=== PATIENT | female | born 1965 | race African-American/Black ===

== ENCOUNTER → 2016-08-21 | Outpatient (CLI) | payer OTHER | LOC: RAD 14:03 | DX: Z12.31 Encounter for screening mammogram for malignant neoplasm of breast (principal) ==

== ENCOUNTER → 2016-11-18 | Outpatient (CLI) | payer OTHER | LOC: RAD 11:44 | DX: M19.011 Primary osteoarthritis, right shoulder (principal) ==

== ENCOUNTER → 2017-07-13 | Outpatient (CLI) | payer OTHER ==
[~2017-07-13] VITALS: Ht 170.2 cm; Wt 85.3 kg
[~2017-07-13] MED LIST: CENTRUM SILVER1 EAC4 PO; FLUTICASONE PRO16 GM NASAL; LIPITOR10 MG PO; LISINOPRIL30 MG PO; NORVASC5 MG PO; SULINDAC 150 M150 MG PO
== END | disposition home or self-care (01) ==
LOC: GI 06:53
DX: Z12.11 Encounter for screening for malignant neoplasm of colon (principal); K57.30 Diverticulosis of large intestine without perforation or abscess without bleeding; K64.8 Other hemorrhoids; I10 Essential (primary) hypertension; E78.00 Pure hypercholesterolemia, unspecified; Z98.890 Other specified postprocedural states; Z87.891 Personal history of nicotine dependence; Z88.2 Allergy status to sulfonamides; Z79.899 Other long term (current) drug therapy
CPT/HCPCS: 62110; 62900

== ENCOUNTER → 2017-08-27 | Outpatient (CLI) | payer OTHER | LOC: BC 04:19 | DX: Z12.31 Encounter for screening mammogram for malignant neoplasm of breast (principal) ==

== ENCOUNTER → 2018-08-13 | Outpatient (CLI) | payer OTHER | LOC: RAD 12:10 | DX: M16.11 Unilateral primary osteoarthritis, right hip (principal) ==

== ENCOUNTER → 2018-09-02 | Outpatient (CLI) | payer OTHER | LOC: RAD 09:48 | DX: Z12.31 Encounter for screening mammogram for malignant neoplasm of breast (principal) ==

== ENCOUNTER → 2018-10-28 | Outpatient (CLI) | payer OTHER | LOC: RAD 15:33 | DX: M47.812 Spondylosis without myelopathy or radiculopathy, cervical region (principal); M19.012 Primary osteoarthritis, left shoulder; M79.671 Pain in right foot ==

== ENCOUNTER → 2019-05-20 | Outpatient (CLI) | payer OTHER | LOC: MRI 05-13 08:29 | DX: S46.812A Strain of other muscles, fascia and tendons at shoulder and upper arm level, left arm, initial encounter (principal); M47.812 Spondylosis without myelopathy or radiculopathy, cervical region; E07.89 Other specified disorders of thyroid; M48.02 Spinal stenosis, cervical region; M50.222 Other cervical disc displacement at C5-C6 level; M25.78 Osteophyte, vertebrae; X58.XXXA Exposure to other specified factors, initial encounter; Y93.89 Activity, other specified; Y92.89 Other specified places as the place of occurrence of the external cause; Y99.8 Other external cause status ==

== ENCOUNTER → 2019-07-06 | Outpatient (CLI) | payer OTHER | LOC: PAIN 13:09 | DX: M47.812 Spondylosis without myelopathy or radiculopathy, cervical region (principal); M79.18 Myalgia, other site; M12.88 Other specific arthropathies, not elsewhere classified, other specified site; M79.642 Pain in left hand; I10 Essential (primary) hypertension; E03.9 Hypothyroidism, unspecified; E78.5 Hyperlipidemia, unspecified; Z88.2 Allergy status to sulfonamides; Z79.899 Other long term (current) drug therapy ==

== ENCOUNTER → 2019-07-20 | Outpatient (CLI) | payer OTHER ==
[~2019-07-20] VITALS: Ht 170.2 cm; Wt 83.4 kg
[~2019-07-20] MED LIST changes: +LEVO-T50 MCG PO; +NABUMETONE 500500 M1 PO; +NORVASC 2.5 MG2.5 M1 PO; +RHINOCORT ALL8.43 ML NASAL; +TIZANIDINE HCL 22 M1 PO
--- NOTE | ~2019-07-20 | HPC ---
[address] [address] PAIN MANAGEMENT CONSULTATION Name: YRISSKYLANITZA S Room #: REG [facility]#: [id number] Admission: 07/20/19 Attend Phys: Marco Antonio Arndt DO Discharge: Date of : 65 Report #: [id number] THIS REPORT FOR: cc: Stefano Harp,Marco Antonio Robertson DO ~ CC: Justin Harp MD DATE OF SERVICE: 07/20/2019 CHIEF COMPLAINT: Chronic neck pain, intermittent left upper extremity pain. HISTORY OF PRESENT ILLNESS: As you know, the patient is a very pleasant 54-year-old female who has returned today in followup visit to undergo cervical epidural injection under fluoroscopic guidance per the request of orthopedic surgeon, who is evaluating the patient for pain involving the cervical area as well as the left shoulder. The patient has undergone an intra-articular shoulder injection with about 50% improvement in overall pain. There was concern that the patient was suffering from cervical radiculopathy and thus the patient was referred to our clinic. She does have imaging of the cervical spine, which shows just some mild changes at C4-C5, C5-C6 and C6-C7 with a small focal disk protrusion at the C5-C6 level with mild effacement of the central canal. She was referred to our clinic to trial a cervical epidural injection and determines if her symptoms would improve. The patient was seen in our clinic at our visit of 07/06/2019 diagnosed with cervicalgia, minimal cervical spondylosis and mainly myofascial pain as well as distal acromioclavicular arthropathy. She was established today's appointment to undergo a cervical epidural injection. ALLERGIES: SULFA. CURRENT MEDICATIONS: Atorvastatin, lisinopril, Rhinocort, amlodipine, levothyroxine, nabumetone, and tizanidine. SOCIAL HISTORY: The patient denies current tobacco use. Denies IV or illicit drug use. Admits to approximately 2 alcoholic beverages per month. She is working, not receiving workmen's compensation, unaccompanied today. IMAGING: No new imaging available. PHYSICAL EXAMINATION: VITAL SIGNS: Blood pressure 146/97, pulse 91, respiratory rate 16 and unlabored. The patient is 97% on room air. Height 5 feet 7 inches tall, weight [facility] [address] [place] [address] PAIN MANAGEMENT CONSULTATION Name: YRISNITZA S [facility] [id number] Admission: 07/20/19 Attend Phys: Marco Antonio Arndt DO Discharge: Date of : 65 Report #: [id number] 183.8 pounds, BMI calculated 28.8. GENERAL: Well-developed, well-nourished, well-hydrated 54-year-old female appearing stated age, pain is rated today 5/10. HEENT: Normocephalic, atraumatic. Pupils equal, round, reactive to light. EXTREMITIES: Show no clubbing, no cyanosis, no edema. MUSCULOSKELETAL: Upper extremity strength equal and symmetrical 5/5, intact to light touch from C5-T1 dermatomes. Cervical provocation testing is met with only slight increase in bilateral neck pain, no radiation of symptoms. Neer's test is positive on the left, negative right. Muscle bulk and tone is equal and symmetrical in upper extremities. Spurling's test negative. ASSESSMENT: 1. Cervicalgia. 2. Minimal cervical spondylosis without radicular symptoms. 3. Myofascial pain. 4. Distal acromioclavicular arthropathy. PLAN: 1. The patient returns today in followup visit having received authorization to undergo a cervical epidural injection under fluoroscopic guidance. The patient has been advised the risks and benefits of a cervical epidural injection. These risks include but are not necessarily limited to bleeding, bruising, infection, worsening pain, no relief of pain, also risk of temporary or permanent muscle weakness, temporary or permanent nerve damage, possible paralysis and . The patient states understood and wished to proceed. 2. The patient has been advised the risks associated specifically with COVID virus. There has been a literature that indicates that the patient's exposed to steroids may have a reduced immune response and this would then place the patient at a higher risk for contraction of the COVID-19 virus. The patient was also advised that steroids have been shown to be a potentially exacerbator of symptoms in people who have been exposed to the COVID virus potentially making symptoms worse. The patient states she understands the risks of the potential with COVID virus and wishes to proceed. 3. No medication changes made at today's visit. The patient will continue current medical therapy as previously prescribed. 4. We will see the patient back in followup visit in approximately 30 days. At that time, review the efficacy of today's cervical epidural injection and determine if next in the series might be necessary. PROCEDURE NOTE DESCRIPTION OF PROCEDURE: C7-T1 cervical epidural steroid injection under fluoroscopic guidance. This is the first procedure of the first series that the patient is undergoing. [address] [address] PAIN MANAGEMENT CONSULTATION Name: NITZA ARNDT Room #: REG CLJose Naylor#: [id number] Admission: 07/20/19 Attend Phys: Marco Antonio ArndtDO Discharge: Date of : 65 Report #: [id number] After obtaining written consent, the patient was taken back to the fluoroscopy suite and placed in a prone position with separate pillows under chest and forehead to decrease cervical lordosis. The skin overlying the cervical area was prepped and draped in an aseptic fashion. The C7-T1 vertebral interspace was identified by AP fluoroscopy. The skin and subcutaneous tissue overlying the target site of injection was anesthetized using 3 mL of 1% lidocaine. A 20-gauge 3-1/2 inch Tuohy needle was advanced under fluoroscopic guidance toward the epidural space using a midline approach. The epidural space was identified using a loss of resistance to air technique. After negative aspiration for heme or cerebrospinal fluid, a total of 1 mL of Omnipaque was injected. A cervical epidurogram was confirmed using AP and oblique fluoroscopy. After negative aspiration for heme or cerebrospinal fluid, 5 mL of a solution containing 2 mL 40 mg per mL, 80 mg total of triamcinolone along with 3 mL lidocaine 1% was injected in increments. Contrast spread was noted from posterior epidural space. The needle was then retracted approximately senior living and the needle track was flushed with 1 mL of 1% lidocaine. There were no apparent new sensory deficits in the upper extremities present following the procedure. A sterile bandage was placed over the injection site. The heart rate, pulse oximetry and blood pressure were continuously monitored after the procedure. There were no apparent complications. The patient tolerated the procedure well and was carefully escorted in the recovery room in stable condition. After meeting discharge criteria, the patient was discharged home. By: [id number] Marco Antonio Arndt DO /nt
[2019-07-20 14:58] VITALS: BP 146/97
--- NOTE | 2019-07-20 15:09 | NUR ---
Pain Clinic Assessment: 1. History of Osteoarthritis: Left Upper Extremity Right Upper Extremity History of Rheumatoid Arthritis: Not Applicable 2. Height: 5 ft. 7 in. 170.2 cm. Weight: 183.8 lb. oz. 83.371 kg. Patient's BMI: 28.8 3. Vital Signs: BP: 146/97 Pulse: 91 Resp: 16 Temp: 02 Sat: 97 ECG Mon: 4. Pain Intensity: 5 5. Fall Risk: Dizziness: N Needs help standing or walking: N Fallen in the last 3 months: N Fall risk comments: 6. Patient on Blood Thinner: None 7. History of Hypertension: Y 8. Opioid Therapy greater than 6 weeks: N Opiate Contract Signed: 07/06/19 9. Risk Assessment Tool Provided: Opioid Risk Tool 10. Functional Assessment Tool: LOW 11. Recreational Drug Use: Never Drug Type: Tobacco Use: Former Smoker Tobacco Type: Amount or Packs/day: How Many Years: Alcohol Use: Yes Frequency: Quant:
== END | disposition home or self-care (01) ==
LOC: PAIN 07:41
DX: M54.2 Cervicalgia (principal); M47.892 Other spondylosis, cervical region; G89.29 Other chronic pain; Z98.890 Other specified postprocedural states; Z88.2 Allergy status to sulfonamides; Z88.8 Allergy status to other drugs, medicaments and biological substances; Z79.899 Other long term (current) drug therapy; Z79.891 Long term (current) use of opiate analgesic

== ENCOUNTER → 2019-08-17 | Outpatient (CLI) | payer OTHER ==
[~2019-08-17] VITALS: Ht 170.2 cm; Wt 83.6 kg
--- NOTE | ~2019-08-17 | HPC ---
[facility] [place] [address] PAIN MANAGEMENT CONSULTATION Name: YRISSKYLANITZA S Room #: REG [facility]#: [id number] Admission: 08/17/19 Attend Phys: Marco Antonio Landeros DO Discharge: Date of : 65 Report #: [id number] THIS REPORT FOR: cc: Stefano Harp,Marco Antonio Robertson DO ~ CC: Justin Harp DATE OF SERVICE: 08/17/2019 REFERRING PHYSICIAN: Dr. Justin Parks. CHIEF COMPLAINT: Neck pain, left shoulder pain. HISTORY OF PRESENT ILLNESS: As you know, the patient is a very pleasant 54-year-old female who has returned today in followup visit reporting about a 50% improvement in overall pain with the cervical epidural injection provided at our last visit. She returns today in followup visit with pain score reported at 4/10. Despite this elevated pain score, she reports 50% improvement in overall symptoms from our previous evaluation. She states she has been able to return to activities of daily living without significant pain interference. She returns today to discuss the possibility of undergoing next in the series of epidural injections to build on success of previous intervention. She denies new injury or trauma or any changes in medical history since our last visit. ALLERGIES: SULFA. CURRENT MEDICATIONS: Atorvastatin, lisinopril, Rhinocort, amlodipine, levothyroxine, nabumetone, and tizanidine. SOCIAL HISTORY: The patient denies current tobacco use. Denies IV or illicit drug use. Admits to approximately 2 alcoholic beverages per month. She is working, not receiving workmen's compensation, unaccompanied today. IMAGING: No new imaging available. PHYSICAL EXAMINATION: VITAL SIGNS: Blood pressure 145/87, pulse is 80, respiratory rate 16 and unlabored. The patient is 98% on room air. Height 5 feet 7 inches tall, weight 184.2 pounds and BMI calculated 28.8. GENERAL: Well-developed, well-nourished, well-hydrated 54-year-old female appearing stated age, pain is rated today 4/10. HEENT: Normocephalic, atraumatic. Pupils equal, round and reactive. EXTREMITIES: Show no clubbing, no cyanosis, no edema. [facility] [address] [place] [address] PAIN MANAGEMENT CONSULTATION Name: NITZA LANDEROS Room #: REG [facility]#: [id number] Admission: 08/17/19 Attend Phys: Marco Antonio Landeros DO Discharge: Date of : 65 Report #: [id number] MUSCULOSKELETAL: Upper extremity strength remains symmetrical again today 08/01. There is no giveaway strength noted. Cervical provocation testing is met with slight increase in bilateral neck pain, no radiation of symptoms. Neer's test is positive left, negative right. Muscle bulk and tone is equal and symmetrical in the upper extremities. Spurling's test is negative. ASSESSMENT: 1. Cervicalgia. 2. Minimal cervical spondylosis without radicular symptoms. 3. Myofascial pain. 4. Distal acromioclavicular arthropathy. PLAN: 1. The patient has returned today in followup visit noting about a 50% improvement of overall pain. She is now placing pain score 4/10. We have questioned the patient in regards to this as her pain when we last saw her was 5/10, which would not correlate to a 50% improvement in symptoms. She states that the pain has just slowly and progressively returned and now is pain level of 4/10. She returns today in followup visit requesting to undergo cervical epidural injection under fluoroscopic guidance to address any residual symptoms she is experiencing today. She has had resolution of most of her symptoms with the epidural injection at the last visit, but is now reporting only a 50% overall. She returns today requesting next in the series of epidural injections. The patient has been advised of the risks and benefits of repeated cervical epidural injection. These risks include but are not necessarily limited to bleeding, bruising, infection, worsening pain, no relief of pain, also risk of temporary or permanent muscle weakness, temporary or permanent nerve damage, possible paralysis and . The patient states understood and wished to proceed. 2. No medication changes made at today's visit. The patient will continue current medical therapy as previously prescribed. 3. I have discussed with the patient that we recommend if she continues to experience neck pain to seek evaluation and treatment through physical therapy. I do feel that myofascial techniques and a possible traction would be quite beneficial for her chronic neck pain. She will consider this option and contact her PCP if she wishes to move forward with this type of treatment. 4. We will see the patient back in followup visit on an as needed basis for possible third in the series of cervical epidural injections. PROCEDURE NOTE DESCRIPTION OF PROCEDURE: C6-C7 cervical epidural steroid injection under fluoroscopic guidance. [facility] [address] [place] [address] PAIN MANAGEMENT CONSULTATION Name: NITZA LANDEROS [facility] [id number] Admission: 08/17/19 Attend Phys: Marco Antonio Landeros Discharge: Date of : 65 Report #: [id number] This is the second procedure of the first series that the patient is undergoing. After obtaining written consent, the patient was taken back to the fluoroscopy suite and placed in a prone position with separate pillows under chest and forehead to decrease cervical lordosis. The skin overlying the cervical area was prepped and draped in an aseptic fashion. The C6-C7 vertebral interspace was identified by AP fluoroscopy. The skin and subcutaneous tissue overlying the target site of injection was anesthetized using 3 mL of 1% lidocaine. A 20-gauge 3-1/5 inch Tuohy needle was advanced under fluoroscopic guidance toward the epidural space using a midline approach. The epidural space was identified using a loss of resistance to air technique. After negative aspiration for heme or cerebrospinal fluid, a total of 1 mL of Omnipaque was injected. A cervical epidurogram was confirmed using AP and oblique fluoroscopy. After negative aspiration for heme or cerebrospinal fluid, 5 mL of a solution containing 2 mL 40 mg per mL, 80 mg total triamcinolone along with 3 mL lidocaine 1% f was injected in increments. Contrast spread was noted from posterior epidural space. The needle was then retracted approximately intermediate and the needle track was flushed with 1 mL of 1% lidocaine. There were no apparent new sensory deficits in the upper extremities present following the procedure. A sterile bandage was placed over the injection site. The heart rate, pulse oximetry and blood pressure were continuously monitored after the procedure. There were no complications. The patient tolerated the procedure well and was carefully escorted in the recovery room in stable condition. After meeting discharge criteria, the patient was discharged home. By: [id number] Marco Antonio Landeros DO /layo
[2019-08-17 14:22] VITALS: BP 145/87
--- NOTE | 2019-08-17 14:32 | NUR ---
Pain Clinic Assessment: 1. History of Osteoarthritis: Left Upper Extremity Right Upper Extremity History of Rheumatoid Arthritis: DENIES 2. Height: 5 ft. 7 in. 170.2 cm. Weight: 184.2 lb. oz. 83.553 kg. Patient's BMI: 28.8 3. Vital Signs: BP: 145/87 Pulse: 80 Resp: 16 Temp: 02 Sat: 98 ECG Mon: 4. Pain Intensity: 4 5. Fall Risk: Dizziness: N Needs help standing or walking: N Fallen in the last 3 months: N Fall risk comments: 6. Patient on Blood Thinner: None 7. History of Hypertension: Y 8. Opioid Therapy greater than 6 weeks: N Opiate Contract Signed: 07/06/19 9. Risk Assessment Tool Provided: Opioid Risk Tool 10. Functional Assessment Tool: LOW 11. Recreational Drug Use: Never Drug Type: Tobacco Use: Former Smoker Tobacco Type: Amount or Packs/day: How Many Years: Alcohol Use: Yes Frequency: Quant:
== END | disposition home or self-care (01) ==
LOC: PAIN 07:09
DX: M54.2 Cervicalgia (principal); M47.812 Spondylosis without myelopathy or radiculopathy, cervical region; M79.18 Myalgia, other site; M12.812 Other specific arthropathies, not elsewhere classified, left shoulder; Z98.890 Other specified postprocedural states; Z79.899 Other long term (current) drug therapy; Z87.891 Personal history of nicotine dependence; Z88.2 Allergy status to sulfonamides

== ENCOUNTER → 2019-09-13 | Outpatient (CLI) | payer OTHER | LOC: BC 08:05 | PROVIDERS: ATTEND Neuromusculoskeletal Medicine & OMM | DX: Z12.31 Encounter for screening mammogram for malignant neoplasm of breast (principal) ==

== ENCOUNTER → 2019-10-04 | Outpatient (CLI) | payer OTHER ==
[~2019-10-04] VITALS: Ht 170.2 cm; Wt 84.5 kg
[2019-10-04 14:01] VITALS: BP 136/86
--- NOTE | 2019-10-04 14:20 | NUR ---
Pain Clinic Assessment: 1. History of Osteoarthritis: Left Upper Extremity Right Upper Extremity History of Rheumatoid Arthritis: DENIES 2. Height: 5 ft. 7 in. 170.2 cm. Weight: 186.2 lb. oz. 84.460 kg. Patient's BMI: 29.2 3. Vital Signs: BP: 136/86 Pulse: 74 Resp: 14 Temp: 02 Sat: 97 ECG Mon: 4. Pain Intensity: 3-4 5. Fall Risk: Dizziness: N Needs help standing or walking: N Fallen in the last 3 months: N Fall risk comments: 6. Patient on Blood Thinner: None 7. History of Hypertension: Y 8. Opioid Therapy greater than 6 weeks: N Opiate Contract Signed: 07/06/19 9. Risk Assessment Tool Provided: Opioid Risk Tool 10. Functional Assessment Tool: LOW 11. Recreational Drug Use: Never Drug Type: Tobacco Use: Former Smoker Tobacco Type: Amount or Packs/day: How Many Years: Alcohol Use: Yes Frequency: Quant:
--- NOTE | 2019-10-11 14:07 | HPC ---
[facility] [place] [address] PAIN MANAGEMENT CONSULTATION Name: NITZA ARNDT Room #: REG [facility]#: [id number] Admission: 10/04/19 Attend Phys: Marco Antonio Arndt DO Discharge: Date of : 65 Report #: [id number] THIS REPORT FOR: cc: Stefano Harp Steven F. DO Johnson, James E. DO ~ DATE OF SERVICE: 10/04/2019 CHIEF COMPLAINT: Neck pain, left upper extremity pain with paresthesias. HISTORY OF PRESENT ILLNESS: As you know, the patient is a very pleasant 54-year-old female who returns today in followup visit to undergo the next in the series of cervical epidural injections. This is the third in the series of injections to be provided in the 6 months. The patient reports with the injection dated 06/17/2019 improvement in symptoms of approximately 75%. She returns today for the third and final in the series of cervical epidural injections in the 6 months. She denies new injury, trauma or any changes in medical history since our last visit. ALLERGIES: SULFA. CURRENT MEDICATIONS: Atorvastatin, lisinopril, Rhinocort, amlodipine, levothyroxine, nabumetone, and tizanidine. SOCIAL HISTORY: The patient denies current tobacco use. Denies IV or illicit drug use. Admits to occasional alcohol beverage. She is working, not receiving workmen's compensation, unaccompanied today. IMAGING: No new imaging available. PHYSICAL EXAMINATION: VITAL SIGNS: Blood pressure 136/86, pulse 74, respiratory rate 14 and unlabored. The patient is 97% on room air. Height 5 feet 7 inches tall, weight 186.2 pounds, BMI calculated 29.2. GENERAL: Well-developed, well-nourished, well-hydrated 54-year-old female appearing stated age, pain is rated today 3-4/10. HEENT: Normocephalic, atraumatic. Pupils are equal, round, and reactive. Speech fluent. EXTREMITIES: Show no clubbing, no cyanosis, and no edema. MUSCULOSKELETAL: Cervical provocation testing is once again met with slight increase in neck pain, but there does not appear to be any radiation of symptoms with these maneuvers. Spurling's test remains mildly positive left, negative right. Muscle bulk and tone is symmetrical in comparing left upper extremity to right. [address] [address] PAIN MANAGEMENT CONSULTATION Name: NITZA ARNDT Room #: REG CLI [facility]#: [id number] Admission: 10/04/19 Attend Phys: Marco Antonio Arndt DO Discharge: Date of : 65 Report #: [id number] ASSESSMENT: 1. Cervicalgia. 2. Minimal cervical spondylosis with radicular symptoms. 3. Myofascial pain. 4. Distal acromioclavicular arthropathy of the left shoulder. PLAN: 1. The patient returns today in followup visit requesting to undergo the third in the series of cervical epidural injections in the 6 months. This is the final injection to be provided for the 6 months. Next injection will be available 01/19/2020 if she wishes to repeat the next series of injections to address potential cervical radiculopathy. The patient states she understands and wishes to proceed with the injection today completing the series The patient has been advised risks and benefits of a cervical epidural injection. These risks include but are not necessarily limited to bleeding, bruising, infection, worsening of pain, no relief of pain, also risk of temporary or permanent muscle weakness, temporary or permanent nerve damage, possible paralysis and . The patient states understood and wished to proceed. 2. No medication changes made at today's visit. The patient will continue current medical therapy as previously prescribed. 3. We will see the patient back in followup visit in December for the next in the series of epidural injections. We wish the patient well and hope that she sees good and prolonged benefit with today's procedure. DESCRIPTION OF PROCEDURE: C7-T1 cervical epidural steroid injection under fluoroscopic guidance. This is the third procedure of the first series that the patient is undergoing. After obtaining written consent, the patient was taken back to the fluoroscopy suite and placed in a prone position with separate pillows under chest and port to decreased cervical lordosis. The skin overlying the cervical area was prepped and draped in an aseptic fashion. The C7-T1 vertebral interspace was identified by AP fluoroscopy. The skin and subcutaneous tissue overlying the target site of injection was anesthetized using 3 mL of 1% lidocaine. A 20-gauge 3-1/2 inch Tuohy needle was advanced under fluoroscopic guidance toward the epidural space using a midline approach. The epidural space was identified using a loss of resistance to air technique. After negative aspiration for heme or cerebrospinal fluid, a total of 1 mL of Omnipaque was injected. A cervical epidurogram was confirmed using AP and oblique fluoroscopy. After negative aspiration for heme or cerebrospinal fluid, 5 mL of a solution containing 2 mL 40 mg/mL 80 mg total triamcinolone along with 3 mL of lidocaine 1% was injected in increments. Contrast spread was noted from [facility] [address] [place] [address] PAIN MANAGEMENT CONSULTATION Name: NITZA ARNDT Room #: REG CLI [facility]#: [id number] Admission: 10/04/19 Attend Phys: Marco Antonio Arndt DO Discharge: Date of : 65 Report #: [id number] posterior epidural space. The needle was then retracted approximately nursing home and the needle track was flushed with 1 mL of 1% lidocaine. There were no apparent new sensory deficits in the upper extremities present following the procedure. A sterile bandage was placed over the injection site. The heart rate, pulse oximetry and blood pressure were continuously monitored after the procedure. There were no apparent complications. The patient tolerated the procedure well and was carefully escorted in the recovery room in stable condition. After meeting discharge criteria, the patient was discharged home. <ELECTRONICALLY SIGNED> By: Marco Antonio Arndt DO 10/11/19 [id number] Marco Antonio Arndt DO /nt
== END | disposition home or self-care (01) ==
LOC: PAIN 06:58
PROVIDERS: ATTEND Anesthesiology Pain Medicine
DX: M54.2 Cervicalgia (principal); M47.22 Other spondylosis with radiculopathy, cervical region; Z79.899 Other long term (current) drug therapy

== ENCOUNTER → 2019-11-24 | Outpatient (CLI) | payer OTHER ==
[2019-11-24 10:45] LABS: ABSOLUTE NEUTROPHILS 3.7 thou/uL (1.4-8.2); BASOPHILS 0.5 % (0.0-2.0); EOSINOPHILS 1.6 % (0.0-3.0); HEMATOCRIT 44.7 % (37.0-47.0); HEMOGLOBIN 14.7 gm/dL (12.0-15.0); LYMPHOCYTES 32.7 % (24.0-44.0); MCH 31.3 pg (26.0-34.0); MCV 94.8 fL (80.0-100.0); MONOCYTES 7.4 % (1.0-8.0); PLATELET COUNT 191 thou/uL (150-400); POLYS 57.8 % (36.0-66.0); RBC 4.72 mil/uL (4.20-5.00); RDW 13.5 % (10.5-14.5); WBC 6.3 thou/uL (4.0-11.0)
[2019-11-24 10:58] LABS: ALBUMIN 3.7 g/dL (3.4-5.0); ANION GAP 8 mmol/L (7-16); BUN 12 mg/dL (7-18); CHLORIDE 106 mmol/L (98-107); CHOLESTEROL 171 mg/dL (<200); CO2 31 mmol/L (21-32); CREATININE 0.7 mg/dL (0.6-1.0); GLUCOSE 102 mg/dL (74-106); HDL CHOLESTEROL 71 mg/dL (>40); LDL CHOLESTEROL 90 mg/dL (<100); POTASSIUM 4.1 mmol/L (3.5-5.1); SGOT 24 U/L (15-37); SGPT 35 U/L (30-65); SODIUM 145 mmol/L (136-145); TC:HDL 2.4 Ratio (Not establshd); TOTAL BILIRUBIN 0.8 mg/dL (0.2-1.0); TOTAL PROTEIN 6.8 g/dL (6.4-8.2); TRIGLYCERIDE 51 mg/dL (<150); VLDL 10 mg/dL (<40)
== END ==
LOC: LAB 09:30
PROVIDERS: ATTEND Neuromusculoskeletal Medicine & OMM
DX: E03.9 Hypothyroidism, unspecified (principal); E78.00 Pure hypercholesterolemia, unspecified; I10 Essential (primary) hypertension; Z79.899 Other long term (current) drug therapy

== ENCOUNTER → 2020-02-09 | Outpatient (CLI) | payer OTHER | LOC: ULTRA 16:08 | PROVIDERS: ATTEND Neuromusculoskeletal Medicine & OMM | DX: M79.89 Other specified soft tissue disorders (principal) ==

== ENCOUNTER → 2020-09-20 | Outpatient (CLI) | payer OTHER | LOC: BC 09:57 | PROVIDERS: ATTEND Neuromusculoskeletal Medicine & OMM | DX: Z12.31 Encounter for screening mammogram for malignant neoplasm of breast (principal) ==

== ENCOUNTER → 2020-11-12 | Outpatient (CLI) | payer OTHER | LOC: RAD 10:00 | PROVIDERS: ATTEND Neuromusculoskeletal Medicine & OMM | DX: M25.561 Pain in right knee (principal) ==

== ENCOUNTER → 2020-12-06 | Outpatient (CLI) | payer OTHER | LOC: MRI 07:47 | PROVIDERS: ATTEND Neuromusculoskeletal Medicine & OMM | DX: S89.91XA Unspecified injury of right lower leg, initial encounter (principal); M24.10 Other articular cartilage disorders, unspecified site; X58.XXXA Exposure to other specified factors, initial encounter; Y93.89 Activity, other specified; Y92.89 Other specified places as the place of occurrence of the external cause; Y99.8 Other external cause status ==